=== PATIENT | female | born 1995 | race African-American/Black ===

== ENCOUNTER 2017-07-04 17:41 | Emergency (ER) | payer MEDICAID, OTHER ==
[~2017-07-04] VITALS: Ht 160 cm; Wt 70.0 kg
[~2017-07-04 17:41] MED LIST: IBUP600 PO; IRON18TA2 PO; PERI8.6T PO; PREN0.01 PO
[2017-07-04 17:42] VITALS: BP 113/63; PULSE 122; RESP 20; TEMP 98.5; O2SAT 100
== END 2017-07-04 20:36 | disposition left against medical advice (07) ==
LOC: NED 17:41
DX: R10.9 Unspecified abdominal pain (principal)
CPT/HCPCS: 99281

== ENCOUNTER 2017-08-09 07:53 | Inpatient (IN) | payer MEDICAID ==
[~2017-08-09] VITALS: Ht 160 cm; Wt 80.0 kg
[2017-08-09] VITALS (53 sets, daily range): BP systolic 106–146; BP diastolic 51–118; PULSE 85–121; RESP 16–20; TEMP 98–98.4
[2017-08-09] MEDS ORDERED: LACTATED RINGER'S 1000 ML INJ 1,000 ML IV PRN (08:24)
[2017-08-09] MEDS ORDERED: LIDOCAINE HCL 1% 50 ML VIAL INFIL PRN (08:30)
[2017-08-09] MEDS ORDERED: MINERAL OIL 10 ML VIAL TOPICAL PRN (08:30)
[2017-08-09] MEDS ORDERED: LIDOCAINE HCL 1% 50 ML VIAL I-DERMAL PRN (08:30)
[2017-08-09] MEDS ORDERED: SODIUM CHLORID 0.9% 500 ML INJ 500 ML IV PRN (08:30)
[2017-08-09] MEDS ORDERED: CITRIC ACID-SODIUM CITRATE LIQ 30 ML UDC PO SCH (08:30)
[2017-08-09] MEDS ORDERED: OXYTOCIN 30 UNITS-500ML PREMIX 500 ML IV ONE (08:30)
[2017-08-09] MEDS ORDERED: ONDANSETRON HCL 4 MG/2 ML VIAL IV PUSH PRN (08:30)
[2017-08-09] MEDS ORDERED: SODIUM CHLOR 0.9% 1000 ML INJ 1,000 ML IV PRN (08:44)
[2017-08-09] MEDS ORDERED: LACTATED RINGER'S 1000 ML INJ 1,000 ML IV SCH (09:00)
[2017-08-09] MEDS ORDERED: OXYTOCIN 30 UNITS-500ML PREMIX 500 ML IV SCH ×2 (09:00→13:45)
--- NOTE | 2017-08-09 09:02 | HHI.HP ---
History & Physical H&P HPI Chief Complaint Rupture of membranes Date Seen: Aug 09, 2017 Time Seen: 08:30 Travel History International Travel<30 Days: No Contact w/Intl Traveler<30Days: No Known Affected Area: No History of Present Illness HPI Small cell is a 22-year-old at 37 weeks and 4 days gestation presented OB ED with loss of fluid. The patient states that she awoke this morning and when getting up and had a large gush of clear fluid. This persisted which led her to come to the OB ED. Patient has had little to no care during this . Her only care has been done at the [facility] OB triage. She had an ultrasound done there which estimated a 32 week gestational age (which is the basis of our current gestational age). Patient denies vaginal bleeding, decreased movement. She did report contractions last night that lasted roughly 45 seconds to a minute and occurred roughly every 5 minutes. Denies fever, chills, chest pain, shortness of breath. History Past Medical History Narrative Medical History of iron deficiency anemia prior to this Obstetric History Obstetric History Previous child was born at 38 weeks by vaginal delivery with no complications No known complications during this , although she has had poor care Past Surgical History Surgical History: No Previous Surgery Family History Narrative Family History Family history of hypertension Social History Alcohol Use: No Tobacco Use: No Substance Abuse: No Allergies-Medications (Allergen,Severity, Reaction): Coded Allergies: No Known Allergies (Verified , 01/13/13) Home Meds Active Scripts Sennosides-Docusate Sodium (Nimisha-Colace 8.6-50 mg) 1 Tab Tab, 2 TAB PO Q12H Y for CONSTIPATION, #20 TAB 1 Refill Prov:Anai Tyler 09/17/15 Ibuprofen (Motrin 600 Mg Tab) 600 Mg Tab, 600 MG PO Q6H Y for CRAMPING, #30 TAB 0 Refills Prov:Anai Tyler 09/17/15 Reported Medications Ferrous Fumarate (Iron) 18 Mg Tab, 18 MG PO, TAB 09/14/15 Multivit/Min/Fol Ac/Iron/Pren ( Vit ( Plus)) Tab, 1 TAB PO DAILY, TAB 09/14/15 Review of Systems Except as stated in HPI: all other systems reviewed are Neg Physical Exam Narrative GENERAL: Well-nourished, well-developed patient. SKIN: Warm and dry. HEAD: Normocephalic and atraumatic. EYES: No scleral icterus. No injection or drainage. ENT: No nasal drainage noted. Mucous membranes pink. Airway patent. NECK: Supple, trachea midline. No JVD. CARDIOVASCULAR: Regular rate and rhythm without murmurs, gallops, or rubs. RESPIRATORY: Breath sounds equal bilaterally. No accessory muscle use. ABDOMEN/GI: Abdomen soft, non-tender, bowel sounds present, no rebound, no guarding Gravid to 37 weeks size GENITOURINARY: External Genitalia: intact and normal in appearance Cervix: Midposition Dilatation: 4 cm Effacement: 50% Station: -1 Presentation: Cephalic Membranes: Ruptured Uterine Contractions: Every 5 minutes FHT's: Category: 1 Baseline: 140 Reactive: Yes Variability: Moderate Decels: None EXTREMITIES: No cyanosis or edema. BACK: Nontender without obvious deformity. No CVA tenderness. NEUROLOGICAL: Awake and alert. Motor and sensory grossly within normal limits. Five out of 5 muscle strength in all muscle groups. Normal speech. Data Data Orders Orders Admit To Inpatient (08/09/17 ) Code Status (08/09/17 08:24) Vital Signs (Adult) .Per protocol (08/09/17 08:24) Activity Oob Ad Marilynn (08/09/17 08:24) Heart (08/09/17 08:24) Amnioinfusion (08/09/17 08:24) Urinary Catheter Management .ONCE (08/09/17 08:24) Diet Liquid (08/09/17 Breakfast) Lactated Ringer's 1000 Ml Inj (Lr 1000 M (08/09/17 09:00) Lactated Ringer's 1000 Ml Inj (Lr 1000 M (08/09/17 08:24) Sodium Chlorid 0.9% 500 Ml Inj (Ns 500 M (08/09/17 08:30) Sodium Chlor 0.9% 1000 Ml Inj (Ns 1000 M (08/09/17 08:44) Lidocaine 1% Inj (50 Ml) (Xylocaine 1% I (08/09/17 08:30) Citric Acid-Sodium Citrate Liq (Bicitra (08/09/17 08:30) Ondansetron Inj (Zofran Inj) (08/09/17 08:30) Fentanyl Inj (Fentanyl Inj) (08/09/17 08:30) Fentanyl Inj (Fentanyl Inj) (08/09/17 08:30) Complete Blood Count With Diff (08/09/17 08:24) Hold Clot (08/09/17 08:24) Abo/Rh Blood Type (08/09/17 08:24) Urinalysis - C+S If Indicated (08/09/17 08:24) Drug Screen, Random Urine (08/09/17 08:24) Type And Screen (08/09/17 08:24) Resp Oxygen Non Rebreathe Mask (08/09/17 ) ^ Epidural / Intrathecal Infus (08/09/17 08:24) Oxytocin 30 Units-500ml Premix (Pitocin (08/09/17 08:30) Lidocaine 1% Inj (50 Ml) (Xylocaine 1% I (08/09/17 08:30) Light Mineral Oil (Muri-Lube Oil) (08/09/17 08:30) Inpatient Certification (08/09/17 ) Gc And Chlamydia Pcr (08/09/17 08:26) Group B Strep Pcr (Rapid) (08/09/17 08:26) Ob/Psych Drug Screen, Urine (08/09/17 08:26) Ob (2e) Additional Admit Info (08/09/17 08:26) Rubella Immune Status (08/09/17 08:36) Hepatitis Profile (08/09/17 08:36) Rapid Plasma Regin (Rpr) W Ttr (08/09/17 08:36) No Care Spec Serology (08/09/17 08:36) ^ Non Stress Test (08/09/17 08:39) Response To Medication .Post New Med Administration, Reaction (08/09/17 08:39) ^ Discontinue Medication (08/09/17 08:39) Oxytocin 30 Units-500ml Premix (Pitocin (08/09/17 08:45) MDM Plan Mrs. Vasquez is a 22-year-old with poor care at estimated gestational age of 37 weeks and 4 days presenting to the ED with rupture of membranes and contractions. Will admit for labor and delivery. 1. Rupture of membranes and contractions -Amnisure positive, leakage of clear fluid -Category 1 FHT -Contractions every 5 minutes -Will start low-dose Pitocin to assist with labor, lactated Ringer's for IV fluids 2. Poor care - labs obtained from [facility] -Rubella immune, RPR negative, hepatitis B surface antigen nonreactive, HIV negative -Obtaining UDS, UA, chlamydia/gonorrhea, GBS status -Obtaining ABO blood type, type and screen, CBC Discussed with Dr. Cam Diagnosis Diagnosis: Primary Impression: Rupture of membranes with clear amniotic fluid Additional Impression: Poor patient attendance of care Jake Prasad MD R1 Jake Prasad MD R1 Aug 09, 2017 09:02
[2017-08-09 09:57] LABS: BACTERIA, URINE RARE /hpf; BLOOD, URINE NEG (NEG); GLUCOSE,URINE NEG (NEG); HYALINE CAST, URINE 1 /lpf (RARE); KETONE, URINE NEG (NEG); MUCUS URINE FEW /lpf (OCC); NITRITE,URINE NEG (NEG); SQUAMOUS EPITHELIAL CELL URINE 8 /hpf (0-5); URINE COLOR YELLOW (YELLW/STRAW)
[2017-08-09 09:59] LABS: COMMENT (UR) CULTURE INDICATED; CULTURE IF INDICATED CULTURE INDICATED
[2017-08-09 10:00] LABS: AUTOMATED NEUTROPHIL # 8.2 TH/MM3 (1.8-7.7); BASOPHIL % 0.2 % (0.0-2.0); EOSINOPHIL # 0.1 TH/MM3 (0-0.4); EOSINOPHIL % 0.8 % (0.0-4.0); HEMATOCRIT 29.3 % (35.0-46.0); HEMO FLAGS DIFF FINAL; LYMPH % 15.3 % (9.0-44.0); LYMPHOCYTE # 1.6 TH/MM3 (1.0-4.8); MEAN CELL VOLUME 67.6 FL (80.0-100.0); MEAN CORPUSCULAR HEMOGLOBIN 20.8 PG (27.0-34.0); MEAN CORPUSCULAR HGB CONC 30.8 % (32.0-36.0); MONO % 6.9 % (0.0-8.0); NEUT % 76.8 % (16.0-70.0); PLATELET COUNT 262 TH/MM3 (150-450); RED BLOOD COUNT 4.33 MIL/MM3 (4.00-5.30); RED CELL DISTRIBUTION WIDTH 18.7 % (11.6-17.2); WHITE BLOOD COUNT 10.7 TH/MM3 (4.0-11.0)
[2017-08-09 12:14] LABS: CHLAMYDIA PCR NOT DETECTED (NOT DETECT); NEISSERIA PCR NOT DETECTED (NOT DETECT)
[2017-08-09] MEDS ORDERED: oxyCODONE/ACETAMINOPHEN 5 MG/325 MG TAB PO PRN ×2 (13:45)
[2017-08-09] MEDS ORDERED: ACETAMINOPHEN 325 MG TAB PO PRN (13:45)
[2017-08-09] MEDS ORDERED: DOCUSATE SODIUM 50 MG/SENNA 8.6 MG TAB PO PRN (13:45)
[2017-08-09] MEDS ORDERED: ALUMINUM/MAGNESIUM/SIMETH 30 ML CUP PO PRN (13:45)
[2017-08-09] MEDS ORDERED: BENZOCAINE 20% TOPICAL SPRAY 60 ML CAN TOPICAL PRN (13:45)
[2017-08-09] MEDS ORDERED: WITCH HAZEL 50%/GLYCERIN 12.5% 40 PAD JAR TOPICAL PRN (13:45)
[2017-08-09] MEDS ORDERED: ONDANSETRON ODT 4 MG TAB PO PRN (13:45)
[2017-08-09] MEDS ORDERED: ZOLPIDEM TARTRATE 5 MG TAB PO PRN (13:45)
[2017-08-09] MEDS ORDERED: SODIUM CHLORIDE 0.9% FLUSH 10 ML FLUSH IV FLUSH PRN (13:45)
--- NOTE | 2017-08-09 13:47 | PD.OB.DELI ---
Weeks gestation: 37 Gest age assessed date: Aug 09, 2017 Gest age assessed time: 08:00 Pt started active labor?: Yes Active labor start date: Aug 09, 2017 Active labor start time: 07:25 Medical induction of labor?: No Artificial rupture of membrane: No Anesthesia: None Episiotomy: None Vaginal Delivery: Normal Presentation: Occiput anterior Nuchal Cord: None Delayed cord clamping (45 sec): Yes : Male Delivery date: Aug 09, 2017 Delivery time: 13:33 One Minute : 8 Five Minute : 8 Weight: 6#15oz. Placenta: Spontaneous delivery Laceration: No lacerations Estimated blood loss: 150 Additional Information Patient progressed to complete/complete/+1 with overall reassuring heart tones and commenced spontaneous maternal expulsive efforts. vertex delivered atraumatically followed by atraumatic and spontaneous delivery of the anterior shoulder and remainder of the . The was placed on maternal abdomen and was crying vigorously after starting to dry the on the mother's abdomen. After a delay the cord was doubly clamped and cut. The remained vigorous and was taken to the warmer for further assessment. The placenta delivered spontaneously. Apgars were 8/8. EBL 150 cc. and mother are both doing well. Claudia Levine MD Aug 09, 2017 13:47
[2017-08-09] MEDS: IBUPROFEN 800 MG TAB PO PRN (14:09)
[2017-08-09] MEDS ORDERED: OXYTOCIN 10 UNIT/ML AMP IM ONE (14:45)
[2017-08-09] MEDS ORDERED: DIPHTH/TETANUS/ACEL PERTUSSIS (BOOSTER) 0.5 ML VIAL/PFS IM ONE (16:00)
[2017-08-09] MEDS ORDERED: MEASLES, MUMPS, RUBELLA VACCINE 0.5 ML VIAL SQ ONE (16:00)
[2017-08-09] MEDS ORDERED: SODIUM CHLORIDE 0.9% FLUSH 10 ML FLUSH IV FLUSH SCH (21:00)
--- NOTE | 2017-08-10 08:15 | HHI.OB ---
Subjective Remarks Patient is a 22-year-old delivered at 37 weeks and 4 days. Patient is day 1 after . Patient's pain is well-controlled. Patient reports eating and drinking without any nausea or vomiting. Patient reports minimal bleeding. Patient has passed gas but no bowel movements. Patient is walking without lower extremity pain or shortness of breath. Patient reports desire for contraception with OCPs and breast-feeding. Objective Vitals/I&O Vital Signs Date Time Temp Pulse Resp B/P (MAP) Pulse Ox O2 Delivery O2 Flow Rate FiO2 08/09/17 19:26 106/63 (77) 08/09/17 19:26 98.4 85 16 08/09/17 15:30 98.4 95 16 110/70 (83) 08/09/17 14:30 103 18 118/51 (73) 08/09/17 14:23 98.0 08/09/17 14:14 18 08/09/17 14:11 103 115/64 (81) 08/09/17 14:08 97 137/104 (115) 08/09/17 14:00 93 146/118 (127) 08/09/17 13:47 18 08/09/17 13:46 105 130/74 (92) 08/09/17 13:10 114 08/09/17 12:55 106 08/09/17 12:50 93 08/09/17 12:45 87 08/09/17 12:40 103 08/09/17 12:37 102 120/73 (89) 08/09/17 12:36 18 08/09/17 12:30 113 08/09/17 12:25 96 08/09/17 12:20 116 08/09/17 12:15 104 08/09/17 12:10 105 08/09/17 12:05 104 08/09/17 12:00 99 08/09/17 11:55 98 08/09/17 11:53 98 119/66 (83) 08/09/17 11:50 104 08/09/17 11:45 118 08/09/17 11:40 94 08/09/17 11:30 102 08/09/17 11:10 121 08/09/17 11:05 104 08/09/17 11:00 94 08/09/17 10:59 94 113/69 (84) 08/09/17 10:55 103 08/09/17 10:50 109 08/09/17 10:45 114 08/09/17 10:36 18 08/09/17 10:35 106 08/09/17 10:30 103 08/09/17 10:30 108 110/77 (88) 08/09/17 10:25 110 08/09/17 10:20 99 08/09/17 10:15 91 08/09/17 10:10 95 08/09/17 10:05 87 08/09/17 10:00 94 08/09/17 10:00 112/68 (83) 08/09/17 09:55 101 08/09/17 09:50 99 08/09/17 09:45 92 08/09/17 09:40 106 08/09/17 09:30 109 18 113/71 (85) 08/09/17 08:15 20 Objective Remarks GENERAL: Well-nourished, well-developed patient. CARDIOVASCULAR: Regular rate and rhythm without murmurs, gallops, or rubs. RESPIRATORY: Breath sounds equal bilaterally. No accessory muscle use. ABDOMEN/GI: Abdomen soft, non-tender. Fundus: Firm, non-tender at umbilicus. GENITOURINARY: Light to moderate bleeding. EXTREMITIES: No cyanosis or edema, non-tender, without signs of DVT. Medications and IVs Current Medications Medications (Trade) Dose Ordered Sig/Brock Route Start Time Stop Time Status Last Admin Oxytocin 500 ml @ 0 mls/hr TITRATE IV 08/09/17 09:00 08/09/17 10:01 (NS Flush) 2 ml BID IV FLUSH 08/09/17 21:00 (NS Flush) 2 ml UNSCH PRN IV FLUSH 08/09/17 13:45 (Tylenol) 650 mg Q4H PRN PO 08/09/17 13:45 (Motrin) 800 mg Q8H PRN PO 08/09/17 13:45 08/09/17 14:09 (Percocet 5-325 Mg) 1 tab Q4H PRN PO 08/09/17 13:45 (Percocet 5-325 Mg) 2 tab Q4H PRN PO 08/09/17 13:45 08/09/17 14:09 (Americaine 20% Top Spr) 1 spray Q4H PRN TOPICAL 08/09/17 13:45 (Tucks Pads) 1 applic QID PRN TOPICAL 08/09/17 13:45 (Nimisha-Colace) 2 tab Q12H PRN PO 08/09/17 13:45 (Ambien) 5 mg HS PRN PO 08/09/17 13:45 (Mag-Al Plus Susp Liq) 15 ml Q8H PRN PO 08/09/17 13:45 (Zofran Odt) 4 mg Q6H PRN PO 08/09/17 13:45 08/09/17 17:35 (Flu (Quadrivalent) Vaccine Inj) 0.5 ml ONCE ONCE IM 08/10/17 10:00 08/10/17 10:01 Assessment/Plan Problem List: (1) (normal spontaneous vaginal delivery) ICD Codes: O80 - Encounter for full-term uncomplicated delivery Status: Acute Assessment and Plan Patient is a 22-year-old delivered at 37 weeks and 4 days. Patient is day 1 after . Patient was counseled to do 6 weeks of pelvic rest. Patient was counseled to follow up in 6 weeks. Patient requested follow-up and contraception. --AF VSS --Continue routine care --Motrin and Percocet when necessary for pain --Encourage OOB --Pelvic rest for 6 weeks will need follow-up appointment at that time. --Contraception: OCPs --Anticipate discharge tomorrow Discharge Planning Likely discharge tomorrow Jake Prasad MD R1 Aug 10, 2017 08:15
[2017-08-10 09:00] VITALS: BP 118/67; PULSE 98; RESP 20; TEMP 98.5; O2SAT 99
[2017-08-10] MEDS ORDERED: INFLUENZA VIRUS VACCINE (QUADRIVALENT) 0.5 ML SYR IM ONE (10:00)
[2017-08-10] MEDS: IBUPROFEN 800 MG TAB PO PRN (10:32)
[2017-08-10] MEDS ORDERED: ACET325T15 PO (15:55)
[2017-08-10] MEDS ORDERED: IBUP1TAB7 PO (15:55)
--- NOTE | 2017-08-10 15:56 | HHI.DCPOC ---
Discharge Care Plan Diagnosis: (1) (normal spontaneous vaginal delivery) Report Symptoms to Your Doctor -Temperature above 100.5 degrees -Redness, of incision or excessive or foul smelling drainage -Unusual pain or calf pain -Increased vaginal bleeding -Painful or difficulty urinating -Feelings of extreme sadness or anxiety after 2 weeks Goals to Promote Your Health * To prevent worsening of your condition and complications, please follow-up with your OB provider within 6 weeks. Please take medications as prescribed. * To maintain your health at the optimal level, please follow medical recommendations. Directions to Meet Your Goals Take your medications as prescribed Follow your dietary instruction Follow activity as directed Ensure plenty of rest for recovery Drink fluids for hydration Keep your appointments as scheduled Take your immunizations and boosters as scheduled If your symptoms worsen call your PCP, if no PCP go to Urgent Care Center or Emergency Room Smoking is Dangerous to Your Health. Avoid second hand smoke Call the 24-hour crisis hotline for domestic abuse at Mati Devries MD R2 Aug 10, 2017 15:56
[2017-08-15 10:47] LABS: ECSTASY (MDMA) UR NEG (NEG); HEROIN (6-ACETYLMORPHINE) UR NEG (NEG); OBMETHADONE UR NEG (NEG); PHENCYCLIDINE URINE NEG (NEG)
[2017-08-15 10:48] LABS: BATH SALTS (MDPV) UR NEG (NEG); K2 SPICE UR NEG (NEG); OBGABAPENTIN UR NEG (NEG); OBHYDROMORPHONE U NEG (NEG)
== END 2017-08-10 17:05 | disposition home or self-care (01) | DRG 775 ==
LOC: HOBED 07:53 → H2EA 08:29 → H1EA 15:17
PROVIDERS: ADMIT Obstetrics & Gynecology Maternal & Fetal Medicine; ATTEND Obstetrics & Gynecology Maternal & Fetal Medicine
PROC: 10E0XZZ Delivery of Products of Conception, External Approach (ICD-10-PCS; principal; 2017-08-09)
DX: O80 Encounter for full-term uncomplicated delivery (principal); Z37.0 Single live birth; Z3A.37 37 weeks gestation of pregnancy
CPT/HCPCS: 59025; 80307; 81001; 84112; 85025; 86850; 86900; 86901; 87081; 87086; 87150; 87491; 87591; G0481; J2590; J3010; J7120